=== PATIENT | female | born 1975 | race Caucasian/White ===

== ENCOUNTER → 2025-02-12 | Day surgery (SDC) | payer OTHER ==
[~2025-02-12] VITALS: Ht 162.5 cm; Wt 93.6 kg
[~2025-02-12] MED LIST: ACETAMINOPHEN 100 ML IV ONE; Dexamethasone Sodium Phospha 4 MG/ML VIAL IV ONE; GLYCOPYRROLATE IN WATER/PF 0.4 MG/2 ML SYRINGE IV ONE; HYDROmorphONE Hydrochloride 0.5 MG/0.5 ML SYRINGE IV PRN; Ketamine Hydrochloride 500 MG/10 ML VIAL IV ONE; Lactated Ringer's Solution 1,000 ML IV ONE; Lidocaine Hydrochloride 5 ML VIAL IV ONE; Midazolam Hydrochloride 2 MG/2 ML VIAL IV ONE; Ondansetron Hydrochloride 4 MG/2 ML VIAL IV ONE; PROPOFOL 200 MG/20 ML VIAL IV ONE; ROCURONIUM BROMIDE 50 MG/5 ML SYRINGE IV ONE; SEVOFLURANE 250 ML BOT INH ONE; SUGAMMADEX SODIUM 200 MG/2 ML VIAL IV ONE
[2025-02-12 09:49] VITALS: BP 160/91
[2025-02-12 10:06] LABS: BASO # 0.1 10*3/uL (0.0-0.1); BASO % 1.0 % (0.0-1.0); EOS # 0.1 10*3/uL (0.0-0.4); EOS % 1.1 % (1.0-4.0); MEAN CELL VOLUME 84.2 fl (81.0-99.0); MEAN CORPUSCULAR HGB 27.5 pg (27.0-31.0); MEAN PLATELET VOLUME 11.3 fl (9.6-12.3); MONO # 0.6 10*3/uL (0.1-1.0); MONO % 10.0 % (3.0-9.0); NEUT # 3.6 10*3/uL (2.3-7.9); NEUT % 57.5 % (47.0-73.0); NUCLEATED RED BLOOD CELL 0.0 % (0.0-0.0); NUCLEATED RED BLOOD CELL 0.0 10*3/uL (0.0-0.0); PLATELET COUNT AUTOMATED 214 10*3/uL (130-400); RED CELL DISTRI WIDTH 12.5 % (0-14.5)
[2025-02-12 10:24] LABS: BUN 9 mg/dl (9-23)
[2025-02-12 14:45] VITALS: BP 99/60
[2025-02-12 15:00] VITALS: BP 102/64
[2025-02-12 15:15] VITALS: BP 109/75
[2025-02-12 15:30] VITALS: BP 118/83
[2025-02-12 15:45] VITALS: BP 123/84
== END | disposition home or self-care (01) ==
LOC: SDC 02-09 11:00
PROVIDERS: ATTEND Obstetrics & Gynecology
DX: N73.6 Female pelvic peritoneal adhesions (postinfective) (principal); R89.8 Other abnormal findings in specimens from other organs, systems and tissues; Z98.890 Other specified postprocedural states; Z90.710 Acquired absence of both cervix and uterus; Z88.0 Allergy status to penicillin